=== PATIENT | female | born 1965 | race American Indian/Alaskan Native ===

== ENCOUNTER 2018-03-22 13:55 | Emergency (ER) | payer BC, MEDICAID ==
[2018-03-22] MEDS ORDERED: Sodium Chloride 0.9% 1,000 ML IV STA (14:48)
--- NOTE | 2018-03-22 14:54 | ED PDOC ---
HPI: Abdomen Time Seen by Provider: 03/22/18 14:13 Chief Complaint (Nursing): Abdominal Pain Chief Complaint (Provider): Abdominal Pain History Per: Patient History/Exam Limitations: no limitations Onset/Duration Of Symptoms: Days (x1) Current Symptoms Are (Timing): Still Present Associated Symptoms: Nausea, Vomiting, Diarrhea. denies: Fever, Chest Pain, Urinary Symptoms Additional Complaint(s): 52 year old female presents to the ED complaining of nausea, vomiting, and nonbloody diarrhea after eating pasta yesterday. Patient reports she also had abdominal cramping and bubbling which continued today. Denies chest pain, shortness of breath, cough, fever, weakness, or urinary complaints. PMD: none provided Past Medical History Reviewed: Historical Data, Nursing Documentation, Vital Signs Vital Signs: Last Vital Signs Temp 99.4 F 03/22/18 14:12 Pulse 97 H 03/22/18 14:12 Resp 18 03/22/18 14:12 BP 169/110 H 03/22/18 14:12 Pulse Ox 98 03/22/18 14:12 - Medical History PMH: HTN - Surgical History Surgical History: Other surgeries: Thyroidectomy - Family History Family History: States: Unknown Family Hx - Home Medications Home Medications: Ambulatory Orders Medication Instructions Recorded Carvedilol [Coreg] 25 mg PO BID 03/22/18 Dicyclomine [Dicyclomine HCl] 10 mg PO DAILY 5 Days cap 03/22/18 Losartan [Cozaar] 50 mg PO BID 03/22/18 Nitrofurantoin Macrocrystals 100 mg PO BID #10 cap 03/22/18 [Macrobid] Ondansetron [Zofran] 4 mg PO Q8H PRN #6 tab 03/22/18 Spironolactone [Aldactone] 25 mg PO DAILY 03/22/18 amLODIPine [Norvasc] 10 mg PO DAILY 03/22/18 - Allergies Allergies/Adverse Reactions: Allergies Allergy/AdvReac Type Severity Reaction Status Date / Time amoxicillin Allergy RASH Verified 03/22/18 14:11 morphine Allergy RASH Verified 03/22/18 14:11 Penicillins Allergy RASH Verified 03/22/18 14:11 Review of Systems ROS Statement: Except As Marked, All Systems Reviewed And Found Negative Constitutional: Negative for: Fever Cardiovascular: Negative for: Chest Pain Respiratory: Negative for: Shortness of Breath Gastrointestinal: Negative for: Nausea, Vomiting, Abdominal Pain (cramping and bubbling), Diarrhea Genitourinary Female: Negative for: Dysuria, Hematuria Neurological: Negative for: Weakness Physical Exam - Reviewed Nursing Documentation Reviewed: Yes Vital Signs Reviewed: Yes - Physical Exam Appears: Positive for: Non-toxic, No Acute Distress Head Exam: Positive for: ATRAUMATIC, NORMOCEPHALIC Skin: Positive for: Normal Color, Warm, Dry Eye Exam: Positive for: Normal appearance Neck: Positive for: Normal, Painless ROM Cardiovascular/Chest: Positive for: Regular Rate, Rhythm Respiratory: Positive for: Normal Breath Sounds. Negative for: Wheezing, Respiratory Distress Gastrointestinal/Abdominal: Positive for: Tenderness (mild diffuse tenderness). Negative for: Guarding, Rebound Extremity: Positive for: Normal ROM Neurologic/Psych: Positive for: Alert, Oriented. Negative for: Motor/Sensory Deficits - Laboratory Results Result Diagrams: 03/22/18 15:04 03/22/18 15:04 Interpretation Of Abn Labs: 3.5 k Urine dip results: Positive for: Leukocyte Esterase - ECG O2 Sat by Pulse Oximetry: 98 (RA) Pulse Ox Interpretation: Normal - Progress ED Course And Treament: 1708: Stat and aaox3. Pain free. Tolerated po. FU with pcp. Medical Decision Making Medical Decision Making: Initial Plan: --CMP --Lipase --ED urine --ED urine dipstick --CBC --Bentyl 10mg PO --Sodium chloride 1000mL IV --Zofran 4mg IV Scribe Attestation: Documented by Bubba Whtilock acting as a scribe for Javier Pabon MD . Provider Scribe Attestation: All medical record entries made by the Scribe were at my direction and persona lly dictated by me. I have reviewed the chart and agree that the record accurately reflects my personal performance of the history, physical exam, medical decision making, and the department course for this patient. I have also personally directed, reviewed, and agree with the discharge instructions and disposition. Disposition - Clinical Impression Clinical Impression: Abdominal cramps, UTI (urinary tract infection), Hypokalemia - Patient ED Disposition Is Patient to be Admitted: No Counseled Patient/Family Regarding: Studies Performed, Diagnosis, Need For Fol lowup, Rx Given - Disposition Referrals: [facility] [Outside] - 03/23/18 Disposition: Routine/Home Disposition Time: 17:09 Condition: STABLE Additional Instructions: Return if not better in 3 days. Prescriptions: Dicyclomine [Dicyclomine HCl] 10 mg PO DAILY 5 Days cap Nitrofurantoin Macrocrystals [Macrobid] 100 mg PO BID #10 cap Ondansetron [Zofran] 4 mg PO Q8H PRN #6 tab PRN Reason: Nausea/Vomiting Instructions: Urinary Tract Infections in Adults, Nausea and Vomiting, Adult, Diarrhea in Adolescents and Adults, Hypokalemia Forms: [facility] (E[place]ian), [facility] ED School/Work Excuse
[2018-03-22 15:15] LABS: BASO # 0.1 K/uL (0.0-0.2); BASO % 0.6 % (0.0-2.0); EOS # 0.1 K/uL (0.0-0.7); EOS % 0.6 % (0.0-4.0); HEMOGLOBIN 12.8 g/dL (12.0-16.0); LYMPH # 2.5 K/uL (1.0-4.3); LYMPH % 22.5 % (20.0-40.0); MEAN CELL VOLUME 81.8 fl (81.0-99.0); MEAN CORPUSCULAR HEMOGLOBIN 25.9 pg (27.0-31.0); MEAN CORPUSCULAR HGB CONC 31.6 g/dL (33.0-37.0); MONO # 0.7 K/uL (0.0-0.8); MONO % 6.1 % (0.0-10.0); NEUT # 7.9 K/uL (1.8-7.0); NEUT % 70.2 % (50.0-75.0); NRBC % 0.1 % (0.0-0.0); RBC 4.95 Mil/uL (3.80-5.20); RED CELL DISTRIBUTION WIDTH 15.9 % (11.5-14.5); WHITE BLOOD COUNT 11.3 K/uL (4.8-10.8)
[2018-03-22 15:20] LABS: ALB/GLOB RATIO 1.2 (1.0-2.1); ALBUMIN 4.2 g/dL (3.5-5.0); ALT/SGPT 25 U/L (9-52); AST/SGOT 20 U/L (14-36); BLOOD UREA NITROGEN 14 mg/dl (7-17); CALCIUM 9.1 mg/dL (8.4-10.2); GFR NON-AFRICAN AMERICAN > 60; LIPASE 54 U/L (23-300)
[2018-03-22] MEDS ORDERED: Potassium Chloride 20 mEq ER Tab PO STA (17:08)
[2018-03-22] MEDS ORDERED: Iohexol 240 (50 ml) PO ONE (17:22)
[2018-03-22] MEDS ORDERED: Potassium Chloride 20 mEq ER Tab PO ONE (17:33)
[2018-03-22] MEDS ORDERED: Iohexol 240 (50 ml) ONE (17:33)
[2018-03-22] MEDS ORDERED: Sodium Chloride 0.9% 50 ML IV ONE (19:29)
[2018-03-22] MEDS ORDERED: Iohexol 300 100 ML IJ ONE (19:29)
[2018-03-22 20:33] VITALS: TEMP 98.7
--- NOTE | 2018-03-22 20:37 | ED PDOC ---
- Laboratory Results Result Diagrams: 03/22/18 15:04 03/22/18 15:04 - ECG O2 Sat by Pulse Oximetry: 98 (RA) Pulse Ox Interpretation: Normal Medical Decision Making Medical Decision Making: Time: 1899 Patient presented to ED with abdominal pain, conservative management done by previous provider did not alleviate symptoms. Pending CT abd/pelvis. Patient has a hx of diverticulitis and will rule out other abdominal pathology. CT Findings: COMMENTS: The liver is of uniform attenuation without mass or defect. There is no intra or extrahepatic biliary ductal dilatation. The spleen is normal. The gallbladder is within normal limits. The pancreas is of normal contour and attenuation characteristics. There is no evidence of adrenal mass. Both kidneys demonstrate prompt and equal nephrograms. The kidneys are normal in size, shape and configuration. There is no evidence of renal or ureteral mass. No renal or ureteral calculi are identified. There is no hydroureter or hydronephrosis. No evidence for appendicitis. There is severe circumferential nodular wall thickening involving long segment of the proximal to mid descending colon measuring approximately 15 cm in length. There is marked adjacent fat stranding and small adjacent lymph nodes. Malignancy is not excluded. Follow-up with colonoscopy is recommended. There is circumferential wall thickening involving cecum and ascending colon consistent with colitis. No evidence for small or large bowel obstruction. Status post complete hysterectomy. There is no evidence of intrinsic or extrinsic bladder mass. There is no pelvic ascites or lymphadenopathy. Images of the lung bases show no evidence of pleural or parenchymal mass. There are no pleural effusions. The bony structures are free of lytic or blastic lesions. IMPRESSION: 1. Severe circumferential nodular wall thickening involving long segment of the proximal to mid descending colon measuring approximately 15 cm in length. Marked adjacent fat stranding and small adjacent lymph nodes. Malignancy is not excluded. Follow-up with colonoscopy is recommended. 2. Mild circumferential wall thickening involving cecum and ascending colon consistent with colitis. 22:22 CT shows colitis also showing transmural thickening. Radiologist read CT and stated that you can not rule out malignancy. Patient states she is now felling better. Patient was given Rx as previously prescribed by Dr. Pabon. Instructed to follow up with PMD when she returns to [place] for outpatient colonoscopy. Discussed CT findings with patient. Scribe Attestation: Documented by rBody Burkett , acting as a scribe for Carli Ferrera MD. Provider Scribe Attestation: All medical record entries made by the Scribe were at my direction and personally dictated by me. I have reviewed the chart and agree that the record accurately reflects my personal performance of the history, physical exam, medical decision making, and the department course for this patient. I have also personally directed, reviewed, and agree with the discharge instructions and disposition. Disposition - Clinical Impression Clinical Impression: Abdominal cramps, UTI (urinary tract infection), Hypokalemia - POA Present On Arrival: None - Disposition Referrals: [facility] [Outside] - 03/23/18 Disposition: Routine/Home Disposition Time: 22:10 Condition: STABLE Additional Instructions: Return if not better in 3 days. Prescriptions: Dicyclomine [Dicyclomine HCl] 10 mg PO DAILY 5 Days cap Nitrofurantoin Macrocrystals [Macrobid] 100 mg PO BID #10 cap Ondansetron [Zofran] 4 mg PO Q8H PRN #6 tab PRN Reason: Nausea/Vomiting Instructions: Urinary Tract Infections in Adults, Diarrhea in Adolescents and Adults, Hypokalemia, Nausea and Vomiting, Adult Forms: [facility] ([place]), [facility] ED School/Work Excuse
[2018-03-22 22:36] VITALS: BP 131/88; PULSE 75; RESP 24
[2018-03-23 04:54] VITALS: O2SAT 98
--- NOTE | 2018-03-23 11:25 | CT ---
Date of service: 03/22/2018 PROCEDURE: CT Abdomen and Pelvis with contrast HISTORY: abd pain COMPARISON: None available TECHNIQUE: Contrast dose: 95 mL Omnipaque 300 Radiation dose: Total exam DLP = 826.61 mGy-cm. This CT exam was performed using one or more of the following dose reduction techniques: Automated exposure control, adjustment of the mA and/or kV according to patient size, and/or use of iterative reconstruction technique. FINDINGS: LOWER THORAX: Unremarkable. LIVER: Normal size, contour and attenuation. No mass. No biliary dilatation. GALLBLADDER AND BILE DUCTS: Unremarkable. PANCREAS: Unremarkable. No gross lesion or ductal dilatation. SPLEEN: Unremarkable. ADRENALS: Bilateral small adrenal nodules are noted, 12 mm on the right and 9 mm on the left. Nonspecific. By size criteria most likely adrenal adenomas. KIDNEYS AND URETERS: 1.3 cm right renal low-density mass, likely cyst. No other renal mass. No calculus or hydronephrosis. VASCULATURE: Unremarkable. No aortic aneurysm. Minimal atherosclerotic calcification of the abdominal aorta. BOWEL: Marked circumferential mural thickening of the colon at the splenic flexure and throughout the descending colon consistent with nonspecific colitis. Consider infectious etiology. Pericolonic stranding. Thickening of the transversalis fascia. No pericolonic abscess. No evidence of free intraperitoneal air. There diverticulosis of the sigmoid colon with minimal mural thickening most likely reflecting chronic muscularis hypertrophy. No bowel obstruction. No other abnormal bowel loops. APPENDIX: Normal appendix. PERITONEUM: Unremarkable. No free fluid. No free air. LYMPH NODES: Unremarkable. No enlarged lymph nodes. BLADDER: Nondistended REPRODUCTIVE: Suspect prior supracervical hysterectomy. Ovaries appear unremarkable. BONES: No acute fracture. OTHER FINDINGS: None. IMPRESSION: Nonspecific colitis involving the splenic flexure and descending colon. Consider infectious etiology such as C difficile. Please follow-up with colonoscopy when clinically feasible to rule out underlying neoplasm. Sigmoid diverticulosis without evidence of diverticulitis. Additional minor findings as above. The preliminary findings for this examination were reported by [facility] at 9:05 p.m. on 03/22/2018.. There is concurrence of this report with the preliminary findings.
== END 2018-03-22 22:55 | disposition home or self-care (01) ==
LOC: H.ER 13:55
DX: R10.9 Unspecified abdominal pain (principal); N39.0 Urinary tract infection, site not specified; E87.6 Hypokalemia; I10 Essential (primary) hypertension; Z88.0 Allergy status to penicillin
CPT/HCPCS: 74177; 80053; 83690; 85025; 96374; 99283; J1885; J2405; J7030; Q9966; Q9967